=== PATIENT | male | born 1960 | race Caucasian/White ===

== ENCOUNTER 2020-12-01 21:46 | Emergency (ER) | payer OTHER ==
[~2020-12-01] VITALS: Ht 165.1 cm; Wt 65.0 kg
[2020-12-01 22:26] LABS: BASOPHILS % (AUTO) 1 % (0-1); EOSINOPHILS % (AUTO) 1 % (1-7); LYMPHOCYTES % (AUTO) 18 % (22-44); MEAN CORPUSCULAR HEMOGLOBIN 28.6 pg (27.5-34.5); MEAN CORPUSCULAR HGB CONC 34.6 g/dL (33.2-36.2); MONOCYTES % (AUTO) 9 % (2-9); NEUTROPHILS % (AUTO) 71 % (42-75); PLATELET COUNT 323 x10^3/uL (130-400); RED BLOOD COUNT 3.79 x10^6/uL (4.38-5.82)
[2020-12-01] MEDS ORDERED: HYDROmorphone 2 MG/ML, 1ML ONE (22:26)
[2020-12-01] MEDS ORDERED: ONDANSETRON 2MG/ML, 2ML ONE (22:26)
[2020-12-01] MEDS ORDERED: HYDROmorphone 1 MG/ML, 1ML INJ IV ONE (22:30)
[2020-12-01] MEDS ORDERED: ONDANSETRON 2MG/ML, 2ML IVPush ONE (22:30)
[2020-12-01 22:50] LABS: ANISOCYTOSIS 2+; ECHINOCYTES 1+
[2020-12-01 22:51] LABS: SPHEROCYTES 1+
[2020-12-01 22:55] LABS: OVALOCYTES 1+; TEAR DROPS 1+
[2020-12-01 22:57] LABS: ALBUMIN 3.4 g/dL (3.4-5.0); CALCIUM 8.7 mg/dL (8.5-10.1); CREATININE 1.76 mg/dL (0.7-1.3)
[2020-12-01 23:00] LABS: <PLATELET ESTIMATE> ADEQUATE; ACANTHOCYTES 1+; ANION GAP 11 mmol/L (5-15); CHLORIDE 111 mmol/L (98-107); LARGE PLATELETS 1+
--- NOTE | 2020-12-01 23:12 | NUR ---
PT RESTING AND GIVEN PAIN MEDS FOR ULTRASOUND EXAM, HIS SCROTUM IS VERY PAINFUL. US TECH TO BEDSIDE.
--- NOTE | 2020-12-01 23:41 | NUR ---
PT UNABLE TO PROVIDE A URINE SAMPLE OF YET. PT UPDATED AND TOLD THAT THE UA IS ALL THAT'S MISSING TO FINISH ALL OF HIS TESTS. PT V/U.
[2020-12-01 23:55] LABS: INTERNATIONAL NORMALIZED RATIO 1.73 (0.93-1.1)
--- NOTE | 2020-12-02 00:05 | NUR ---
PT RESTING COMFORTABLY, NO URINE PROVIDED YET. NO C/O PAIN AT THIS TIME.
--- NOTE | 2020-12-02 00:42 | NUR ---
PT RESTING AT THIS TIME, AND PROVIDED URINE SAMPLE, AND SAMPLES SENT TO LAB WITHOUT ISSUE. PT IS PAIN FREE AT THIS TIME, WAITING ON ALL TEST RESULTS TO COME BACK, AND IS AWARE.
[2020-12-02 00:51] LABS: MICROSCOPIC INDICATED
[2020-12-02 01:28] VITALS: BP 121/74
[2020-12-02] MEDS ORDERED: CEFTRIAXONE 1,000 MG IM ONE (01:30)
[2020-12-02] MEDS ORDERED: LIDOCAINE-MPF 1%, 2ML ONE (01:33)
[2020-12-02] MEDS ORDERED: CEFTRIAXONE 1,000 MG ONE (01:33)
--- NOTE | 2020-12-02 01:56 | NUR ---
break rn: Patient/Caregiver given discharge instructions and they have confirmed that they understand the instructions. Patient ambulatory with steady gait. NAD, all questions answered appropriately, denies additional needs at this time. No personal belongings left in room after discharge.
[2020-12-02] MEDS ORDERED: CEFTRIAXONE 1,000 MG in DEXTROSE 5% 50 ML IVPB ONE (02:00)
== END 2020-12-02 01:56 | disposition home or self-care (01) ==
LOC: ED 22:57
DX: N45.1 Epididymitis (principal); N43.1 Infected hydrocele; I25.2 Old myocardial infarction; J44.9 Chronic obstructive pulmonary disease, unspecified; F17.200 Nicotine dependence, unspecified, uncomplicated; Z85.51 Personal history of malignant neoplasm of bladder; Z86.73 Personal history of transient ischemic attack (TIA), and cerebral infarction without residual deficits
CPT/HCPCS: 36415; 76870; 80048; 81001; 82040; 85025; 85610; 87086; 96365; 96375; 99284; J0696; J1170; J2405; 87147